=== PATIENT | male | born 1935 | race Asian ===

== ENCOUNTER 2016-12-22 07:33 | Inpatient (IN) | payer MEDICARE, OTHER ==
[2016-12-22] VITALS (8 sets, daily range): BP systolic 82–155; BP diastolic 49–96
[~2016-12-22] VITALS: Ht 167.6 cm; Wt 63.5 kg
--- NOTE | 2016-12-22 07:40 | Emergency Room Report ---
History of Present Illness General Source: Patient, EMS Present Illness HPI Patient presents with substernal chest pain. According to EMS began this morning, 2 hours ago. They treated him with aspirin and 3 sprays of nitroglycerin. It was 10/10 initially and he felt better but would not give them the number. There is some language barrier. According to daughter, several days (close to week) of dyspnea and orthopnea = intermittent. No chest pain before today. No fevers, NVD, rashes, headache, dysuria. Possibly some anxiety. Treated for Parkinson's. Medications stable. Allergies: Coded Allergies: No Known Allergies (Unverified , 12/22/16) Patient History Limited by: language barrier Past Medical History: see triage record Social History Narrative Reviewed Nursing Documentation: PMH: Agreed, PSxH: Agreed Review of Systems All Other Systems: negative except mentioned in HPI Physical Exam Vital Signs Date Time Temp Pulse Resp B/P Pulse Ox O2 Delivery O2 Flow Rate FiO2 12/22/16 07:48 122/79 12/22/16 07:58 98.8 84 29 99 Room Air Sp02 EP Interpretation: reviewed, normal General Appearance: well appearing, no apparent distress, GCS 15 Head: normocephalic Eyes: bilateral eye PERRL, bilateral eye normal inspection ENT: moist mucus membranes Neck: supple Respiratory: lungs clear, normal breath sounds Cardiovascular #1: regular rate, rhythm Cardiovascular #2: 2+ radial (R) Gastrointestinal: normal inspection, normal bowel sounds, non tender, no mass, non-distended Musculoskeletal: back normal, gait/station normal, normal range of motion Neurologic: alert, oriented x3, DTRs symmetric, sensory intact, other - resting tremor, slight depression Psychiatric: mood/affect normal - flat Skin: other - vitiligo Medical Decision Making Diagnostic Impression: Primary Impression: ACS (acute coronary syndrome) Additional Impression: Parkinsons disease ER Course Patient presents with substernal chest pain. The prehospital EKG shows minimal ST elevation in inferior leads. We are going to repeat that here. Differential includes acute myocardial infarction, angina, chest wall pain, pleurisy amongst others. Evaluation will be with labs, EKG and chest x-ray. The patient be treated with nitroglycerin paste and morphine. He received aspirin in the field. EKG with minimal ST elevation (not STEMI) inferior leads - no change from EMS EKG. CXR chronic changes. Labs with negative troponin. Anxiety at not having meds for Parkinsons in AM. Check with pharmacy to ID meds and ordered. Improved with treatment. Admitted telemetry Dr. Das. Laboratory Tests Test 12/22/16 07:50 12/22/16 08:42 White Blood Count 5.6 K/UL (4.8-10.8) Red Blood Count 4.43 M/UL (4.70-6.10) L Hemoglobin 15.0 G/DL (14.2-18.0) Hematocrit 42.9 % (42.0-52.0) Mean Corpuscular Volume 97 FL (80-99) Mean Corpuscular Hemoglobin 33.9 PG (27.0-31.0) H Mean Corpuscular Hemoglobin Concent 35.0 G/DL (32.0-36.0) Red Cell Distribution Width 11.0 % (11.6-14.8) L Platelet Count 181 K/UL (150-450) Mean Platelet Volume 6.4 FL (6.5-10.1) L Neutrophils (%) (Auto) 71.5 % (45.0-75.0) Lymphocytes (%) (Auto) 18.9 % (20.0-45.0) L Monocytes (%) (Auto) 6.4 % (1.0-10.0) Eosinophils (%) (Auto) 1.6 % (0.0-3.0) Basophils (%) (Auto) 1.5 % (0.0-2.0) Prothrombin Time 10.8 SEC (9.30-11.50) Prothrombin Time INR 1.1 (0.9-1.1) PTT 27 SEC (23-33) Sodium Level 137 mEQ/L (135-145) Potassium Level 4.4 mEQ/L (3.4-4.9) Chloride Level 100 mEQ/L (98-107) Carbon Dioxide Level 26 mEQ/L (20-30) Anion Gap 11 (5-15) Blood Urea Nitrogen 24 mg/dL (7-23) H Creatinine 1.2 mg/dL (0.7-1.2) Estimate Glomerular Filtration Rate mL/min (>60) Glucose Level 153 mg/dL (74-106) H Calcium Level 9.3 mg/dL (8.6-10.2) Total Bilirubin 0.7 mg/dL (0.0-1.2) Aspartate Amino Transferase (AST) 25 U/L (5-40) Alanine Aminotransferase (ALT) 6 U/L (3-41) Alkaline Phosphatase 82 U/L (40-129) Total Creatine Kinase 75 U/L (38-174) Troponin I < 0.30 ng/mL (<=0.30) Pro-B-Type Natriuretic Peptide 75 pg/mL (0-450) Total Protein 6.5 g/dL (6.6-8.7) L Albumin 3.8 g/dL (3.5-5.2) Globulin 2.7 g/dL Albumin/Globulin Ratio 1.4 (1.0-2.7) Triglycerides Level 90 mg/dL (< 150) Cholesterol Level 154 mg/dL (< 200) LDL Cholesterol 97 mg/dL (60-99) HDL Cholesterol 39 mg/dL (> 60) Cholesterol/HDL Ratio 3.9 (3.3-4.4) Urine Color Pale yellow Urine Appearance Clear Urine pH 6 (4.5-8.0) Urine Specific Haiku 1.020 (1.005-1.035) Urine Protein Negative (NEGATIVE) Urine Glucose (UA) Negative (NEGATIVE) Urine Ketones 1+ (NEGATIVE) H Urine Occult Blood 1+ (NEGATIVE) H Urine Nitrite Negative (NEGATIVE) Urine Bilirubin Negative (NEGATIVE) Urine Urobilinogen Normal MG/DL (0.0-1.0) Urine Leukocyte Esterase 1+ (NEGATIVE) H Urine RBC 0-2 /HPF (0 - 0) H Urine WBC 2-4 /HPF (0 - 0) Urine Squamous Epithelial Cells Occasional /LPF Urine Bacteria Few /HPF (NONE) EKG Diagnostic Results Rate: normal Rhythm: NSR ST Segments: other - minimal ST elevation inferior leads Rhythm Strip Diag. Results EP Interpretation: yes Rhythm: NSR, no PVC's, no ectopy Chest X-Ray Diagnostic Results EP Interpretation: Yes Findings: no consolidation, no effusion, no pneumothorax, no acute cardiopulmonary disease Number of Views: 1 98.4, 136/96, 24, 79, 100% RA Status: improved Disposition: ADMITTED INPATIENT Condition: Serious Alireza Grajeda M.D. December 22, 2016 07:40
[2016-12-22] MEDS ORDERED: Nitroglycerin 2% oint pkt TOPIC ONE (07:45)
[2016-12-22] MEDS ORDERED: Morphine Sulfate 4mg/ml Inj IVP ONE (07:45)
[2016-12-22 08:13] LABS: BASOPHILS % (AUTO) 1.5 % (0.0-2.0); EOSINOPHILS % (AUTO) 1.6 % (0.0-3.0); LYMPHOCYTES % (AUTO) 18.9 % (20.0-45.0); MEAN CORPUSCULAR HEMOGLOBIN 33.9 PG (27.0-31.0); MEAN CORPUSCULAR VOLUME 97 FL (80-99); MEAN PLATELET VOLUME 6.4 FL (6.5-10.1); MONOCYTES % (AUTO) 6.4 % (1.0-10.0); NEUTROPHILS % (AUTO) 71.5 % (45.0-75.0); PLATELET COUNT 181 K/UL (150-450); RED BLOOD COUNT 4.43 M/UL (4.70-6.10); WHITE BLOOD COUNT 5.6 K/UL (4.8-10.8)
[2016-12-22 08:22] LABS: INR 1.1 (0.9-1.1); PROTHROMBIN TIME 10.8 SEC (9.30-11.50)
[2016-12-22 08:27] LABS: ALANINE AMINOTRANSFERASE 6 U/L (3-41); ALBUMIN/GLOBULIN RATIO 1.4 (1.0-2.7); ANION GAP 11 (5-15); ASPARTATE AMINO TRANSFERASE 25 U/L (5-40); CALCIUM 9.3 mg/dL (8.6-10.2); CARBON DIOXIDE 26 mEQ/L (20-30); CHLORIDE 100 mEQ/L (98-107); CREATININE 1.2 mg/dL (0.7-1.2); HEMOLYSIS 52; POTASSIUM 4.4 mEQ/L (3.4-4.9); SODIUM 137 mEQ/L (135-145); TOTAL PROTEIN 6.5 g/dL (6.6-8.7)
[2016-12-22 08:30] LABS: TROPONIN I < 0.30 ng/mL (<=0.30)
[2016-12-22] MEDS ORDERED: UNOBMED (09:12)
[2016-12-22 09:13] LABS: APPEARANCE,URINE CLEAR; KETONES,URINE 1+ (NEGATIVE); LEUKOCYTE ESTERASE ,URINE 1+ (NEGATIVE); NITRITE,URINE NEGATIVE (NEGATIVE); PH,URINE 6 (4.5-8.0); PROTEIN,URINE NEGATIVE (NEGATIVE); UROBILINOGEN,URINE NORMAL MG/DL (0.0-1.0)
[2016-12-22 09:29] LABS: BACTERIA,URINE FEW /HPF; RBC,URINE 0-2 /HPF (0 - 0); SQUAMOUS EPITHELIAL CELL,UR OCCASIONAL /LPF (NONE/OCC)
[2016-12-22] MEDS ORDERED: Entacapone 200mg tab ORAL STA (09:48)
--- NOTE | 2016-12-22 11:01 | Diagnostic Imaging Report ---
Indication: Chest pain Technique: One view of the chest Comparison: none Findings: No acute infiltrates, effusions, or congestion. Tortuous calcified aorta. Normal heart size. Upper mediastinum unremarkable. Impression: No acute process. This agrees with the preliminary interpretation provided by the emergency room physician
[2016-12-22 12:42] LABS: CHOLESTEROL/HDL RATIO 3.9 (3.3-4.4)
[2016-12-22] MEDS ORDERED: COLACE100 MG ORAL (15:33)
[2016-12-22] MEDS ORDERED: BUPROPION HCL200 MG PO (15:33)
[2016-12-22] MEDS ORDERED: FUROSEMIDE20 M1 ORAL (15:33)
[2016-12-22] MEDS ORDERED: METFORMIN HCL500 M1 ORAL (15:33)
[2016-12-22] MEDS ORDERED: AMLODIPINE BESY10 MG ORAL (15:33)
[2016-12-22] MEDS ORDERED: CREON DR 24,001 EACH PO (15:33)
[2016-12-22] MEDS ORDERED: CARBIDOPA-LEVO1 EA14 PO (15:33)
[2016-12-22] MEDS ORDERED: COMTAN200 MG ORAL (15:33)
[2016-12-22] MEDS ORDERED: ISOSORBIDE MONO30 M1 PO (15:33)
[2016-12-22] MEDS ORDERED: GABAPENTIN100 MG ORAL (15:33)
[2016-12-22] MEDS ORDERED: Imdur 30mg tab ORAL SCH (16:00)
[2016-12-22] MEDS: Imdur 30mg tab ORAL SCH (16:18)
[2016-12-22] MEDS: Docusate 100mg cap ORAL SCH (16:18)
[2016-12-22] MEDS: metFORMIN 500mg tab ORAL SCH (17:31)
[2016-12-22] MEDS: Entacapone 200mg tab ORAL SCH ×2 (17:32→21:48)
--- NOTE | 2016-12-22 21:15 | History and Physical Report ---
DATE OF ADMISSION: 12/22/2016 HISTORY OF PRESENT ILLNESS: The patient is admitted for chest pain and rule out acute coronary syndrome. The patient's chest pain started a couple of hours ago. Aspirin was given as well as three doses of nitroglycerin. The patient denies nausea, vomiting, or diarrhea. Denies palpitations. Denies shortness of breath. Denies cough. Denies loss of consciousness. PAST MEDICAL HISTORY: 1. Parkinson's. 2. GERD. PAST SURGICAL HISTORY: None. MEDICATIONS: None. ALLERGIES: None. FAMILY HISTORY: Noncontributory. No history of heart disease. SOCIAL HISTORY: Denies history of smoking, alcohol, or illicit drugs. REVIEW OF SYSTEMS: HEENT: Denies headaches. Respiratory: Denies shortness of breath. Denies cough. Cardiovascular: Reports chest pain for a couple of hours that is still not completely relieved after nitroglycerin and aspirin were given. Denies orthopnea. Gastrointestinal: Denies nausea, vomiting, or diarrhea. Denies heartburn. Extremities: Denies pain. Central Nervous System: No change in vision or speech pattern. PHYSICAL EXAMINATION: VITAL SIGNS: Temperature is 98.7 degrees, pulse 83, and blood pressure 125/78. HEENT: PERRLA. NECK: Supple. No lymphadenopathy. CHEST: Clear to auscultation. GASTROINTESTINAL: Soft, nontender, and nondistended. No organomegaly. EXTREMITIES: No edema. Reflexes are equal on both sides. Moves all four extremities. NEUROLOGIC: Sensory is intact to light touch. LABORATORY DATA: Laboratory-sherman, WBC of 5.6, hemoglobin of 15, and platelets of 181,000. Sodium 137, potassium 4.4, BUN of 24, creatinine 1.2, and glucose of 153. ASSESSMENT AND PLAN: Chest pain, rule out acute coronary syndrome. I have started the patient on aspirin ordered and Dr. Henderson has been consulted to rule out acute coronary syndrome. Also for azotemia, Dr. Porter has been consulted for the azotemia and the treatment of it. We will defer the workup of chest pain to Dr. Henderson. Shireen Das M.D. DR: SAUL JOB#: [id number] CC:
[2016-12-22] MEDS ORDERED: LORazepam 1mg tab ORAL PRN (22:30)
[2016-12-23 04:19] VITALS: BP 95/63
[2016-12-23 07:17] VITALS: BP 101/66
[2016-12-23 07:40] LABS: TROPONIN I < 0.30 ng/mL (<=0.30)
[2016-12-23] MEDS: Entacapone 200mg tab ORAL SCH ×4 (08:37→21:00)
[2016-12-23] MEDS: Aspirin EC 81mg tab ORAL SCH (08:39)
[2016-12-23] MEDS: Docusate 100mg cap ORAL SCH (08:39)
[2016-12-23] MEDS: Imdur 30mg tab ORAL SCH (08:40)
[2016-12-23] MEDS: BuPROPion SR 100mg tab ORAL SCH (08:40)
[2016-12-23] MEDS: metFORMIN 500mg tab ORAL SCH ×2 (08:41→16:56)
--- NOTE | 2016-12-23 11:05 | General Progress Note ---
Assessment/Plan Problem List: (1) Parkinsons disease ICD Codes: G20 - Parkinson's disease SNOMED: 95684329 (2) Chest pain ICD Codes: R07.9 - Chest pain, unspecified SNOMED: 15066473 (3) ACS (acute coronary syndrome) ICD Codes: I24.9 - Acute ischemic heart disease, unspecified SNOMED: 578076471 Status: progressing Assessment/Plan chest pain confused and agitated consulted dr garnica and has 1:1 sitter agrees to snf for time being Subjective ROS Limited/Unobtainable: Yes Constitutional: Reports: no symptoms Allergies: Coded Allergies: No Known Allergies (Unverified , 12/22/16) Objective Last 24 Hour Vital Signs Date Time Temp Pulse Resp B/P Pulse Ox O2 Delivery O2 Flow Rate FiO2 12/23/16 08:41 79 135/77 12/23/16 08:40 135/77 12/23/16 07:17 97.0 70 20 101/66 100 Room Air 12/23/16 04:19 97.1 72 19 95/63 94 Room Air 12/23/16 04:00 72 12/23/16 00:00 80 12/22/16 23:46 97.7 78 19 82/49 98 Room Air 12/22/16 20:04 97.2 70 20 123/75 97 Room Air 12/22/16 20:00 140 12/22/16 16:19 76 143/89 12/22/16 16:18 143/89 12/22/16 16:00 73 12/22/16 15:47 97.7 76 18 143/89 99 Room Air 12/22/16 12:42 97.3 77 18 136/78 98 Room Air 12/22/16 12:30 98.4 79 24 136/96 100 Room Air 12/22/16 12:15 98.4 79 24 136/96 100 Room Air Intake and Output 12/22/16 12/23/16 19:00 07:00 Intake Total 120 ml Output Total 900 ml 1600 ml Balance -780 ml -1600 ml Intake Oral 120 ml Output Urine Total 900 ml 1600 ml Laboratory Tests 12/23/16 06:20: Troponin I < 0.30 Height (Feet): 5 Height (Inches): 6.00 Weight (Pounds): 140 General Appearance: confused Respiratory/Chest: lungs clear Abdomen: soft Hadadz,Ali MD December 23, 2016 11:05
[2016-12-23 12:50] VITALS: BP 114/65
[2016-12-23 16:02] VITALS: BP 123/84
--- NOTE | 2016-12-23 18:00 | Consultation ---
DATE OF CONSULTATION: 12/23/2016 CONSULTING PHYSICIAN: Sary Pardo M.D. HISTORY OF PRESENT ILLNESS: This is a 81-year-old male with a history of multiple medical problems, includes Parkinson disease and GERD who has been admitted to the hospital due to chest pain, to rule out myocardial infarction or coronary artery disease. The patient apparently became severely agitated the night before and requested to get Ativan. The family was at bedside and requested to give 2 mg of Ativan. The patient was prescribed. The patient has difficulty with language as his [place] is poor, and therefore, there is language barrier to provide history. The patient does not endorse any current anxiety or agitation. No psychotic or manic symptoms. It appears that the patient gets more anxious towards the night time. PAST PSYCHIATRIC HISTORY: As I mentioned, he was diagnosed with anxiety disorder and he is receiving lorazepam prior to sleep. PAST MEDICAL HISTORY: Significant for GERD and Parkinson disease. ALLERGIES: No known drug allergies. SUBSTANCE ABUSE HISTORY: There is no history of illicit drug use or alcohol. MENTAL STATUS EXAMINATION: The patient is alert and oriented times place, person, and situation he is in. Mood is depressed. Affect is constricted, congruent with mood. Thought process is concrete. Thought content, there is no suicidal or homicidal ideation. ASSESSMENT: AXIS I: 1. Anxiety disorder. 2. Major depressive disorder, mild. AXIS II: Deferred. AXIS III: Parkinson disease. AXIS IV: Low. AXIS V: Global assessment of functioning is 50. PLAN: 1. The patient will be continued on Ativan 2 mg by mouth at bedtime as needed for insomnia. 2. We will continue to follow and readjust the patient's medication accordingly. Sary Pardo M.D. DR: FÉLIX JOB#: [id number] CC:
--- NOTE | 2016-12-23 18:00 | Neurology Progress Note ---
Interim History Interim History ROS Limited/Unobtainable: Yes Objective Physical Exam Last Vital Signs Date Time Temp Pulse Resp B/P Pulse Ox O2 Delivery O2 Flow Rate FiO2 12/23/16 16:02 97.3 98 18 123/84 97 Room Air Laboratory Tests Test 12/23/16 06:20 Troponin I < 0.30 ng/mL (<=0.30) Impression/Recommendations Problems: (1) parkinson disease with drug induced dyskinesia, advanced (2) ACS (acute coronary syndrome) Status: progressing, unchanged Recommendations #[id number] good candidate for DEEP BRAIN STIMULATION per [facility] LIBRA Mcclure December 23, 2016 18:00
--- NOTE | 2016-12-23 19:31 | Cardiology Progress Note ---
Assessment/Plan Assessment/Plan The patient is seen and examined, full consult note will be dictated shortly. Objective Last 24 Hour Vital Signs Date Time Temp Pulse Resp B/P Pulse Ox O2 Delivery O2 Flow Rate FiO2 12/23/16 16:02 97.3 98 18 123/84 97 Room Air 12/23/16 16:00 98 12/23/16 12:50 96.9 84 20 114/65 96 Room Air 12/23/16 12:00 81 12/23/16 08:41 79 135/77 12/23/16 08:40 135/77 12/23/16 08:00 80 12/23/16 07:17 97.0 70 20 101/66 100 Room Air 12/23/16 04:19 97.1 72 19 95/63 94 Room Air 12/23/16 04:00 72 12/23/16 00:00 80 12/22/16 23:46 97.7 78 19 82/49 98 Room Air 12/22/16 20:04 97.2 70 20 123/75 97 Room Air 12/22/16 20:00 140 Intake and Output 12/22/16 12/23/16 19:00 07:00 Intake Total 120 ml Output Total 900 ml 1600 ml Balance -780 ml -1600 ml Intake Oral 120 ml Output Urine Total 900 ml 1600 ml Laboratory Tests Test 12/23/16 06:20 Troponin I < 0.30 ng/mL (<=0.30) AICHA CONTEH December 23, 2016 19:31
[2016-12-23 20:00] VITALS: BP 108/84
[2016-12-23] MEDS: LORazepam 1mg tab ORAL PRN (20:10)
[2016-12-23] MEDS ORDERED: LORazepam Inj 2mg/ml 1ml ONE (20:16)
[2016-12-23] MEDS ORDERED: LORazepam Inj 2mg/ml 1ml IM ONE (20:30)
[2016-12-24] VITALS (7 sets, daily range): BP systolic 103–153; BP diastolic 70–85
--- NOTE | 2016-12-24 04:00 | Consultation ---
DATE OF CONSULTATION: 12/23/2016 NEUROLOGICAL CONSULTATION CONSULTING PHYSICIAN: Satish Friend M.D. REQUESTING PHYSICIAN: Shireen Das M.D. HISTORY OF PRESENT ILLNESS: The patient is a 81-year-old man seen in neurological consultation to evaluate the presence of Parkinson disease. According to the patient, who spoke through a [place] admissions officer know that he is suffering from Parkinson disease for at least 6 years. This progressively worsened making very unsteady on gait, presenting from ambulation unless fully assisted. He was maintained on high doses of Sinemet, couple of months ago Sinemet was t.i.d. and now it is q.i.d. The patient noted that through the day, he has intermittent appearance of generalized body twitching lasting couple of hours each. Currently, the patient was treated for presence of substernal chest pain, shortness of breath. He was brought to emergency room where he was given aspirin and nitroglycerin. Chest pain was quite severe 10/10 with some gradually subsided. His vital signs study with blood pressure was 122/79, temperature 98.8 degrees and pulse oximetry 99%. Chest x-ray, no acute disease. EKG evidence of minimal ST elevation. Laboratory work was obtained revealing a remarkable CBC study. Normal coagulation panel. Urinalysis 1+ ketones, and chemistry panel blood sugar 153 and BUN of 24. Normal lipid panel. Normal troponin. Since admission till present, overall condition is somewhat improved, less pain, but at this time he continued to have quite significant generalized athetosis. PAST MEDICAL HISTORY: History of Parkinson disease, but also history of mild diabetes, and hypertension. MEDICATIONS: Treatment prior to admission included metformin, Creon, isosorbide, gabapentin 100 mg t.i.d., furosemide, entacapone 500 mg q.i.d., Sinemet 25/250 mg q.i.d., Wellbutrin 200 mg daily, and amlodipine. ALLERGIES: None reported. SOCIAL HISTORY: He lives at home with the family members. No alcohol. No drug abuse. Nonsmoker. REVIEW OF SYSTEMS: Generalized weakness, involuntary movement, and difficult to ambulate. Denies headache or dizziness. No chest pain. No palpitations. No respiratory difficulties. No urine or bowel incontinence. PHYSICAL EXAMINATION: GENERAL: This is a well-developed and well-nourished man, who is constantly continues to have athetosis affecting from both upper and lower extremities and body twisting. VITAL SIGNS: Now stable. Blood pressure was 121/84 and temperature 97.3 degrees. HEENT: Head, normocephalic. There is no evidence of trauma. Eyes, ears, and throat are clear. NECK: Rigid in all directions. MUSCULOSKELETAL EXAMINATION: Unremarkable. There are no deformities. Peripheral pulses 1+ symmetric. MENTAL STATUS: The patient is alert and oriented x3. Speech is fluent. Language is intact. He appears somewhat inappropriate like trying to pull out IVs. CRANIAL NERVE II: Pupils both responding to light and accommodation. Extraocular movements intact. No nystagmus. CRANIAL NERVE V: Normal corneal responses. CRANIAL NERVE VII: No facial asymmetry. No involuntary movement. CRANIAL NERVE IX THROUGH XII: Tongue is in midline. Symmetric palate elevation. MOTOR EXAMINATION: There is a continuous athetosis in both upper and lower extremities, increased muscle tone rigidity both upper and lower extremities. Deep reflexes 2+ bilaterally symmetric. Plantar response is mute. Sensory examination normal in all modalities. Gait not tested. IMPRESSION: 1. Parkinson disease with drug-induced dyskinesia, advanced. 2. Diabetes type 2. 3. Hypertension. 4. Chest pain. DISCUSSION: The patient presents with a quite advanced form of Parkinson disease with intermittent daily dyskinesia. The patient is now given high dose of Sinemet combined with Comtan with no appropriate affect. It seems that the patient is a good candidate for a deep brain stimulation. This should be deferred to Parkinsonian clinic as an outpatient. Meanwhile, Sinemet to be given half an hour prior to each meal q.i.d. combined with Comtan. Thank you for allowing me to see this interesting patient in neurological consultation. Satish Friend M.D. DR: CHAU JOB#: [id number] CC:
[2016-12-24] MEDS: Aspirin EC 81mg tab ORAL SCH (08:49)
[2016-12-24] MEDS: BuPROPion SR 100mg tab ORAL SCH (08:49)
[2016-12-24] MEDS: metFORMIN 500mg tab ORAL SCH ×2 (08:49→18:21)
[2016-12-24] MEDS: Docusate 100mg cap ORAL SCH (08:49)
[2016-12-24] MEDS: Entacapone 200mg tab ORAL SCH ×4 (08:50→20:51)
[2016-12-24] MEDS: Imdur 30mg tab ORAL SCH ×2 (08:50→09:00)
--- NOTE | 2016-12-24 10:08 | Cardiology Report ---
APPROVED REPORT EKG Measurement Heart [id number] Sinus rhythm with 1st degree AV block Low voltage QRS Inferior infarct, age undetermined Anterolateral infarct, age undetermined Abnormal ECG
--- NOTE | 2016-12-24 10:50 | General Progress Note ---
Assessment/Plan Problem List: (1) Parkinsons disease ICD Codes: G20 - Parkinson's disease SNOMED: [id number] (2) Chest pain ICD Codes: R07.9 - Chest pain, unspecified SNOMED: 80972962 (3) ACS (acute coronary syndrome) ICD Codes: I24.9 - Acute ischemic heart disease, unspecified SNOMED: 180694092 Status: progressing Assessment/Plan chest pain confused and agitated ordered pt\ot parkinson afebrile no wheezing Subjective ROS Limited/Unobtainable: Yes Allergies: Coded Allergies: No Known Allergies (Unverified , 12/22/16) Objective Last 24 Hour Vital Signs Date Time Temp Pulse Resp B/P Pulse Ox O2 Delivery O2 Flow Rate FiO2 12/24/16 08:51 80 103/77 12/24/16 08:50 103/77 12/24/16 08:00 112 12/24/16 07:53 96.4 80 17 103/77 97 Room Air 12/24/16 04:00 72 12/24/16 04:00 97.3 77 20 107/77 97 Room Air 12/24/16 00:00 97.3 85 20 105/84 97 Room Air 12/24/16 00:00 80 12/23/16 20:00 97.3 87 20 108/84 97 Room Air 12/23/16 20:00 87 12/23/16 16:02 97.3 98 18 123/84 97 Room Air 12/23/16 16:00 98 12/23/16 12:50 96.9 84 20 114/65 96 Room Air 12/23/16 12:00 81 Intake and Output 12/23/16 12/24/16 19:00 07:00 Intake Total 360 ml Output Total 400 ml 300 ml Balance -40 ml -300 ml Intake Oral 360 ml Output Urine Total 400 ml 300 ml # Voids 1 Height (Feet): 5 Height (Inches): 6.00 Weight (Pounds): 140 General Appearance: confused Respiratory/Chest: lungs clear Abdomen: soft Shireen Das MD Dec 24, 2016 10:49
--- NOTE | 2016-12-24 14:41 | Neurology Progress Note ---
Interim History Interim History ROS Limited/Unobtainable: Yes Complaints: involuntary movements Events: sl better Objective Physical Exam Last Vital Signs Date Time Temp Pulse Resp B/P Pulse Ox O2 Delivery O2 Flow Rate FiO2 12/24/16 12:00 90 12/24/16 11:55 96.9 18 143/80 98 Room Air General: well developed, well nourished, no acute distress Head: normocophalic Neck: other - rigid EENT: benign Neurologic Exam Mental Status: awake, alert, oriented x4, normal cognition, normal recent memory Speech: normal speech, no dysarthia Language: normal language, no aphasia Cranial Nerve II: fundus normal, visual malcolm, no papilledema Cranial Nerves III, IV, : PERRLA, EOMI, pupils Cranial Nerve V: normal facial sensations, temporales function normal, masseters function normal, pterygoids function normal Cranial Nerve VII: no facial asymmetry, normal facial expressions Cranial Nerve VIII: normal hearing, no nystagmus Cranial Nerve IX: normal palate elevation, gag response Cranial Nerve X: no voice hoarseness Cranial Nerve XI: SCM symmetric, trapezii function normal Cranial Nerve XII: tongue midline, no tongue atrophy/fasciculations Motor System: other - atetosis arm/legs, Sensory: normal pinprick Coordination: normal finger to nose bilaterally Impression/Recommendations Problems: (1) parkinson disease with drug induced dyskinesia, advanced (2) ACS (acute coronary syndrome) Status: progressing Recommendations #[id number] good candidate for DEEP BRAIN STIMULATION per [facility] clinik sinemet to be taken prior to meals d/w and med staff LIBRA PARTIDA Dec 24, 2016 14:41
--- NOTE | 2016-12-24 16:51 | Diagnostic Imaging Report ---
Indications: Chest pain and hypertension Technique: Single day single isotope protocol utilized. Initially, resting images obtained using IV administration 3.0 millicuries 99M technetium Myoview. Subsequently, patient underwent stress testing. See cardiology report for details. During adenosine infusion, IV administration mCi 99 M technetium Myoview. SPECT and planar images obtained. Gated images could not be obtained due to arrhythmias and motion artifacts related are concerning in movement. Therefore, the ejection fraction calculation and wall motion analysis could not be obtained. Comparison: None Findings: Per cardiology report, patient experienced no symptoms. Per cardiology report, resting EKG demonstrates atrial fibrillation. Presence or absence of ST changes during infusion not recorded. Imaging demonstrates equivocal small focal area of decreased perfusion in the anteroseptal region near the apex on the poststress images, not definitely evident on the resting images. Normal cardiac chamber size. Impression: Nondiagnostic clinical response to pharmacologic stress, per cardiology report Nondiagnostic electrocardiographic response to pharmacologic stress, per cardiology report Equivocal small reversible perfusion defect in the anteroseptal wall near the apex. Quite possibly artifactual, but small focus of ischemia is also a possibility. Unobtainable ejection fraction that see above
--- NOTE | 2016-12-24 20:23 | Cardiology Progress Note ---
Assessment/Plan Assessment/Plan 1. Atypical chest pain, non-ischemic stress test per nuclear stress test, the patient can be transferred to the med-surg unit. 2. Accelerated HTN, start propranolol 10mg po qid, would help tremors as well. Subjective Subjective Sinus rhythm at 80. Denies chest pain or SOB. Objective Last 24 Hour Vital Signs Date Time Temp Pulse Resp B/P Pulse Ox O2 Delivery O2 Flow Rate FiO2 12/24/16 19:48 98.8 79 20 153/70 94 Room Air 12/24/16 16:12 97.3 89 17 144/85 100 Room Air 12/24/16 16:00 101 12/24/16 12:00 90 12/24/16 11:55 96.9 88 18 143/80 98 Room Air 12/24/16 11:33 88 155/87 12/24/16 09:00 103/77 12/24/16 08:00 112 12/24/16 07:53 96.4 80 17 103/77 97 Room Air 12/24/16 04:00 72 12/24/16 04:00 97.3 77 20 107/77 97 Room Air 12/24/16 00:00 97.3 85 20 105/84 97 Room Air 12/24/16 00:00 80 Intake and Output 12/23/16 12/24/16 19:00 07:00 Intake Total 360 ml Output Total 400 ml 300 ml Balance -40 ml -300 ml Intake Oral 360 ml Output Urine Total 400 ml 300 ml # Voids 1 Objective HEENT: normocephalic, bilateral eye PERRL, EOMI Neck: negative JVD, no carotid bruit with normal upstroke Respiratory: lungs clear Cardiovascular #1: regular rate, rhythm, normal S1S2, no murmurs, gallops or rubs Gastrointestinal: normal bowel sounds, non tender, no mass, non-distended Musculoskeletal: No edema, clubbing or cyanosis AICHA CONTEH Dec 24, 2016 20:23
--- NOTE | 2016-12-24 21:30 | Progress Note ---
SUBJECTIVE: The patient was uncooperative became agitated. He was attempting to come out of bed, pulling out his IV. The patient was uncooperative. MENTAL STATUS EXAMINATION: The patient is confused and disoriented. Not engaged during the evaluation. Mood is neutral during the evaluation. Affect is flat. Thought process is concrete. Memory is impaired. ASSESSMENT: AXIS I Dementia and delirium. AXIS II Deferred. AXIS III Acute coronary syndrome and Parkinson disease. PLAN: 1. The patient will be continued Ativan. Also, we will start the patient on Seroquel p.r.n. 2. We will continue to follow and monitor his symptoms. Sary Pardo M.D. DR: Melanie JOB#: [id number] CC:
[2016-12-24] MEDS: LORazepam 1mg tab ORAL PRN (21:37)
--- NOTE | 2016-12-24 22:30 | Consultation ---
DATE OF CONSULTATION: 12/23/2016 CARDIOLOGY CONSULTATION REFERRING PHYSICIAN: Shireen Das M.D. REASON FOR CONSULTATION: Management of chest pain. HISTORY OF PRESENT ILLNESS: The patient is a very unfortunate 81-year-old gentleman, who presents to the hospital with substernal chest pain. According to EMS, chest pain started two hours prior to arrival to this facility, which was on 12/22/2016. He was given aspirin and three sprays of nitroglycerin. Chest pain intensity was 10/10 initially and then it got better. The patient's daughter states that the patient had been complaining of dyspnea and orthopnea intermittently for the past several days. On arrival to the emergency department, blood pressure was 122/79 and heart rate was 84. The patient was admitted to telemetry for further evaluation and management. Cardiology consultation was made at request of Dr. Das for evaluation of chest pain. At the time of my evaluation, the patient was moving all around in bed, could not communicate with the patient because of language barrier as well as his movement disorder. PAST MEDICAL HISTORY: Parkinson disease, diabetes mellitus, and hypertension. MEDICATIONS: List of medication includes amlodipine 10 mg p.o. daily, bupropion 200 mg p.o. daily, carbidopa levodopa one tablet p.o. four times a day, Colace 100 mg p.o. daily, Comtan 200 mg four times a day, furosemide 200 mg p.o. daily, gabapentin 100 mg p.o. times daily, isosorbide 30 mg p.o. daily, Creon 25,000 units per capsule one capsule three times a day and metformin 500 mg twice a day. ALLERGIES: No known drug allergies. SOCIAL HISTORY: Lives at home with family members. There is no prior history of alcohol tobacco or illicit drug use. REVIEW OF SYSTEMS: HEENT: Denies any headache, diplopia, or blurred vision. Constitutional: Complains of generalized weakness, but no fever, chills, or night sweats. Cardiovascular: Chest pain, as mentioned above and has also some dyspnea on exertion according to the patient's daughter and also PND and orthopnea, but denies any syncope or palpitation. Pulmonary: Denies any cough, hemoptysis or wheezing. Gastrointestinal: Denies any nausea, vomiting, diarrhea, constipation, abdominal pain, or GI bleed. Genitourinary: Denies any hematuria, dysuria, or incontinence. Neurology: He has just involuntary movements, gait imbalance, and difficulty with ambulation. No prior history of stroke, signs of lateralization or inability to express himself in his levelock language. PHYSICAL EXAMINATION: GENERAL: The patient is a very unfortunate 81-year-old gentleman, who is possibly moving around, in no apparent respiratory distress. VITAL SIGNS: On arrival to the hospital, blood pressure is 132/79, respirations of 29, pulse of 84, temperature 98.8 degrees Fahrenheit, and O2 saturation of 99% on room air. HEENT: Atraumatic and normocephalic. Anicteric. Pupils are equal, round, and reactive to light and accommodation. Extraocular muscles intact. NECK: JVP is less than 5 centimeter. No carotid bruit. Carotid upstroke is 2+ bilaterally. CARDIOVASCULAR: Normal S1 and S2. Regular rate and rhythm. No murmurs, gallops, or rubs. PMI is at fourth intercostal space in the midclavicular line. LUNGS: Clear to auscultation bilaterally. ABDOMEN: Soft, nontender, and nondistended. No hepatosplenomegaly. Positive bowel sounds. EXTREMITIES: There is no evidence of edema, clubbing, or cyanosis. LABORATORY AND DIAGNOSTIC DATA: WBC was 5.6, hemoglobin of 15.0, hematocrit of 42.9 and platelet count is 181,000. Sodium was 137, potassium 4.4, chloride 100, bicarbonate 26, BUN of 24, creatinine 1.2 and glucose is 153. Calcium is 9.3. A troponin I x1 negative, less than 0.3. ProBNP was 75. INR is 1.1. A 12-lead electrocardiogram showed sinus rhythm with first-degree AV block and heart rate of 80, inferior infarct, age indeterminate and anterolateral infarct, age indeterminate. A chest x-ray showed no acute cardiopulmonary disease. ASSESSMENT AND PLAN: The patient is a very unfortunate 81-year-old gentleman, who is seen in Cardiology consultation at request of Dr. Das. 1. Chest pain, this is quite atypical, but the patient has risk factors for coronary artery disease including hypertension and age. I would like to proceed with the dobutamine stress echocardiography to assess wall motion abnormalities. Further therapeutic and diagnostic decision will be based on results of the stress test. In the meantime, we will like to obtain a lipid panel and treat accordingly. 2. History of hypertension. Continue with the amlodipine at this point, blood pressure is currently in stage 1. Currently, the patient on amlodipine. Blood pressure is well controlled. We will continue to check blood pressure on regular basis. 3. History of Parkinson disease. I would like to thank, Dr. Das, for allowing me to participate in the care of this patient. Petr Henderson M.D. DR: LALO JOB#: [id number] CC:
[2016-12-25] VITALS (7 sets, daily range): BP systolic 103–130; BP diastolic 61–84
[2016-12-25] MEDS ORDERED: Milk of Magnesia 30ml Ud ORAL ONE (09:00)
[2016-12-25] MEDS: Imdur 30mg tab ORAL SCH ×2 (09:00→09:28)
[2016-12-25] MEDS ORDERED: Bisacodyl EC 5mg tab ORAL ONE (09:00)
[2016-12-25] MEDS: Docusate 100mg cap ORAL SCH (09:24)
[2016-12-25] MEDS: metFORMIN 500mg tab ORAL SCH ×2 (09:24→18:58)
[2016-12-25] MEDS: Aspirin EC 81mg tab ORAL SCH (09:24)
[2016-12-25] MEDS: BuPROPion SR 100mg tab ORAL SCH (09:25)
[2016-12-25] MEDS: Entacapone 200mg tab ORAL SCH ×4 (10:17→21:31)
--- NOTE | 2016-12-25 12:43 | General Progress Note ---
Assessment/Plan Problem List: (1) Parkinsons disease ICD Codes: G20 - Parkinson's disease SNOMED: 01087350 (2) Chest pain ICD Codes: R07.9 - Chest pain, unspecified SNOMED: 60422870 (3) ACS (acute coronary syndrome) ICD Codes: I24.9 - Acute ischemic heart disease, unspecified SNOMED: 064159209 Status: progressing Assessment/Plan no chest pain cleared by cardiology for dc dc to snf needs monitering agrees Subjective ROS Limited/Unobtainable: Yes Constitutional: Reports: no symptoms Allergies: Coded Allergies: No Known Allergies (Unverified , 12/22/16) Objective Last 24 Hour Vital Signs Date Time Temp Pulse Resp B/P Pulse Ox O2 Delivery O2 Flow Rate FiO2 12/25/16 09:00 103/63 12/25/16 09:00 81 103/63 12/25/16 07:19 97.1 81 19 103/63 97 Room Air 12/25/16 05:07 75 113/61 99 Room Air 12/25/16 04:04 98.1 86 20 128/84 96 Room Air 12/24/16 23:52 98.4 89 19 135/78 94 Room Air 12/24/16 20:00 87 12/24/16 19:48 98.8 79 20 153/70 94 Room Air 12/24/16 16:12 97.3 89 17 144/85 100 Room Air 12/24/16 16:00 101 Intake and Output 12/24/16 12/25/16 19:00 07:00 Intake Total 460 ml Output Total 810 ml 300 ml Balance -350 ml -300 ml Intake Oral 460 ml Output Urine Total 810 ml 300 ml # Voids 6 1 Height (Feet): 5 Height (Inches): 6.00 Weight (Pounds): 140 EENT: PERRL/EOMI Neck: supple Cardiovascular: regular rhythm Respiratory/Chest: lungs clear Abdomen: soft Shireen Das MD Dec 25, 2016 12:43
--- NOTE | 2016-12-25 15:40 | Diagnostic Imaging Report ---
APPROVED REPORT CPT Code: 98717 Present Symptoms Shortness of breath Comments: Chest pain BILATERAL: Imaging reveals a patent deep venous system bilaterally. There is no evidence of thrombus within the femoral, popliteal or tibial segments. The greater saphenous veins are also within normal limits. Doppler indicates normal spontaneous flow within these segments.
--- NOTE | 2016-12-25 20:48 | Cardiology Progress Note ---
Assessment/Plan Assessment/Plan 1. Atypical chest pain, non-ischemic stress test per nuclear stress test. 2. Accelerated HTN, continue propranolol Subjective Subjective Transferred to the med-surg unit. Denies chest pain or SOB. Objective Last 24 Hour Vital Signs Date Time Temp Pulse Resp B/P Pulse Ox O2 Delivery O2 Flow Rate FiO2 12/25/16 19:58 97.7 79 20 122/84 98 Room Air 12/25/16 15:50 97.6 18 130/84 98 Room Air 12/25/16 13:39 97.9 17 105/73 99 Room Air 12/25/16 12:00 97.9 87 17 105/73 99 Room Air 12/25/16 09:00 103/63 12/25/16 09:00 81 103/63 12/25/16 07:19 97.1 81 19 103/63 97 Room Air 12/25/16 05:07 75 113/61 99 Room Air 12/25/16 04:04 98.1 86 20 128/84 96 Room Air 12/24/16 23:52 98.4 89 19 135/78 94 Room Air Intake and Output 12/24/16 12/25/16 19:00 07:00 Intake Total 460 ml Output Total 810 ml 300 ml Balance -350 ml -300 ml Intake Oral 460 ml Output Urine Total 810 ml 300 ml # Voids 6 1 Objective HEENT: normocephalic, bilateral eye PERRL, EOMI Neck: negative JVD, no carotid bruit with normal upstroke Respiratory: lungs clear Cardiovascular #1: regular rate, rhythm, normal S1S2, no murmurs, gallops or rubs Gastrointestinal: normal bowel sounds, non tender, no mass, non-distended Musculoskeletal: No edema, clubbing or cyanosis AICHA CONTEH Dec 25, 2016 20:48
[2016-12-25] MEDS: LORazepam 1mg tab ORAL PRN (21:31)
[2016-12-26] VITALS: BP 138/50
[2016-12-26 04:00] VITALS: BP 134/60
[2016-12-26 08:00] VITALS: BP 113/71
[2016-12-26] MEDS: Imdur 30mg tab ORAL SCH (09:00)
[2016-12-26] MEDS: Aspirin EC 81mg tab ORAL SCH (09:57)
[2016-12-26] MEDS: BuPROPion SR 100mg tab ORAL SCH (09:57)
[2016-12-26] MEDS: Entacapone 200mg tab ORAL SCH ×4 (09:57→20:28)
[2016-12-26] MEDS: Docusate 100mg cap ORAL SCH (09:58)
[2016-12-26] MEDS: metFORMIN 500mg tab ORAL SCH ×2 (09:58→18:05)
--- NOTE | 2016-12-26 10:29 | General Progress Note ---
Assessment/Plan Problem List: (1) Chest pain ICD Codes: R07.9 - Chest pain, unspecified SNOMED: 33317380 (2) Parkinsons disease ICD Codes: G20 - Parkinson's disease SNOMED: 36171123 (3) ACS (acute coronary syndrome) ICD Codes: I24.9 - Acute ischemic heart disease, unspecified SNOMED: 807085143 (4) parkinson disease with drug induced dyskinesia, advanced Status: stable, progressing, tolerating diet Assessment/Plan ot pt diet, cbc bmp am Subjective Allergies: Coded Allergies: No Known Allergies (Unverified , 12/22/16) All Systems: reviewed and negative except above Subjective calm in bed Objective Last 24 Hour Vital Signs Date Time Temp Pulse Resp B/P Pulse Ox O2 Delivery O2 Flow Rate FiO2 12/26/16 09:00 113/71 12/26/16 09:00 72 113/71 12/26/16 08:00 97.3 72 20 113/71 98 Room Air 12/26/16 04:00 97.1 78 20 134/60 97 Room Air 12/26/16 00:00 96.9 77 18 138/50 95 Room Air 12/25/16 19:58 97.7 79 20 122/84 98 Room Air 12/25/16 15:50 97.6 18 130/84 98 Room Air 12/25/16 13:39 97.9 17 105/73 99 Room Air 12/25/16 12:00 97.9 87 17 105/73 99 Room Air Intake and Output 12/25/16 12/26/16 19:00 07:00 Intake Total 480 ml Balance 480 ml Intake Oral 480 ml # Voids 3 # Bowel Movements 1 Height (Feet): 5 Height (Inches): 6.00 Weight (Pounds): 140 General Appearance: lethargic EENT: normal ENT inspection Neck: normal alignment Cardiovascular: normal peripheral pulses, normal rate, regular rhythm Respiratory/Chest: chest wall non-tender, lungs clear, normal breath sounds Abdomen: normal bowel sounds, non tender, soft Extremities: normal inspection Edema: no edema noted Arm (L), no edema noted Arm (R), no edema noted Leg (L), no edema noted Leg (R), no edema noted Pedal (L), no edema noted Pedal (R), no edema noted Generalized Neurologic: responsive, motor weakness Skin: normal pigmentation, warm/dry ELLY RICE Dec 26, 2016 10:29
[2016-12-26 12:00] VITALS: BP 144/85
[2016-12-26 16:00] VITALS: BP 121/75
[2016-12-26] MEDS: LORazepam 1mg tab ORAL PRN (20:28)
[2016-12-26] MEDS ORDERED: LORazepam Inj 2mg/ml 1ml IM ONE ×2 (22:30)
[2016-12-27] VITALS: BP 125/63
[2016-12-27 04:00] VITALS: BP 115/60
[2016-12-27 07:27] LABS: BASOPHILS % (AUTO) 1.3 % (0.0-2.0); EOSINOPHILS % (AUTO) 3.1 % (0.0-3.0); LYMPHOCYTES % (AUTO) 24.3 % (20.0-45.0); MEAN CORPUSCULAR HEMOGLOBIN 34.2 PG (27.0-31.0); MEAN CORPUSCULAR HGB CONC 35.5 G/DL (32.0-36.0); MEAN CORPUSCULAR VOLUME 96 FL (80-99); MEAN PLATELET VOLUME 7.1 FL (6.5-10.1); MONOCYTES % (AUTO) 9.7 % (1.0-10.0); NEUTROPHILS % (AUTO) 61.6 % (45.0-75.0); PLATELET COUNT 174 K/UL (150-450); RED BLOOD COUNT 4.86 M/UL (4.70-6.10); RED CELL DISTRIBUTION WIDTH 10.7 % (11.6-14.8); WHITE BLOOD COUNT 6.4 K/UL (4.8-10.8)
[2016-12-27 08:00] VITALS: BP 124/86
[2016-12-27 08:07] LABS: ANION GAP 16 (5-15); CALCIUM 9.4 mg/dL (8.6-10.2); CARBON DIOXIDE 25 mEQ/L (20-30); CHLORIDE 96 mEQ/L (98-107); HEMOLYSIS 10; POTASSIUM 3.5 mEQ/L (3.4-4.9); SODIUM 137 mEQ/L (135-145)
--- NOTE | 2016-12-27 08:26 | General Progress Note ---
Assessment/Plan Problem List: (1) Chest pain ICD Codes: R07.9 - Chest pain, unspecified SNOMED: 98795554 (2) Parkinsons disease ICD Codes: G20 - Parkinson's disease SNOMED: 47623106 (3) ACS (acute coronary syndrome) ICD Codes: I24.9 - Acute ischemic heart disease, unspecified SNOMED: 880390387 (4) parkinson disease with drug induced dyskinesia, advanced Status: stable, progressing, tolerating diet Assessment/Plan ot pt diet, cbc bmp am Subjective Constitutional: Reports: weakness Allergies: Coded Allergies: No Known Allergies (Unverified , 12/22/16) All Systems: reviewed and negative except above Subjective calm in bed Objective Last 24 Hour Vital Signs Date Time Temp Pulse Resp B/P Pulse Ox O2 Delivery O2 Flow Rate FiO2 12/27/16 04:00 97.5 97 19 115/60 98 Room Air 12/27/16 00:00 97.4 98 19 125/63 98 Room Air 12/26/16 19:35 97.5 85 17 96 Room Air 12/26/16 16:00 97.5 97 20 121/75 98 Room Air 12/26/16 12:00 97.3 93 20 144/85 98 Room Air 12/26/16 09:00 113/71 12/26/16 09:00 72 113/71 Intake and Output 12/26/16 12/27/16 19:00 07:00 Intake Total 536 ml 60 ml Balance 536 ml 60 ml Intake Oral 536 ml 60 ml # Voids 8 2 Laboratory Tests 12/27/16 05:10: White Blood Count 6.4, Red Blood Count 4.86, Hemoglobin 16.6, Hematocrit 46.8, Mean Corpuscular Volume 96, Mean Corpuscular Hemoglobin 34.2H, Mean Corpuscular Hemoglobin Concent 35.5, Red Cell Distribution Width 10.7L, Platelet Count 174, Mean Platelet Volume 7.1, Neutrophils (%) (Auto) 61.6, Lymphocytes (%) (Auto) 24.3, Monocytes (%) (Auto) 9.7, Eosinophils (%) (Auto) 3.1H, Basophils (%) (Auto ) 1.3, Sodium Level 137, Potassium Level 3.5, Chloride Level 96L, Carbon Dioxide Level 25, Anion Gap 16H, Blood Urea Nitrogen 25H, Creatinine 1.0, Estimat Glomerular Filtration Rate , Glucose Level 100, Calcium Level 9.4 Height (Feet): 5 Height (Inches): 6.00 Weight (Pounds): 140 General Appearance: lethargic EENT: normal ENT inspection Neck: normal alignment Cardiovascular: normal peripheral pulses, normal rate, regular rhythm Respiratory/Chest: chest wall non-tender, lungs clear, normal breath sounds Abdomen: normal bowel sounds, non tender, soft Extremities: normal inspection Edema: no edema noted Arm (L), no edema noted Arm (R), no edema noted Leg (L), no edema noted Leg (R), no edema noted Pedal (L), no edema noted Pedal (R), no edema noted Generalized Neurologic: motor weakness Skin: normal pigmentation, warm/dry ELLY RICE Dec 27, 2016 08:26
[2016-12-27] MEDS: Aspirin EC 81mg tab ORAL SCH (08:53)
[2016-12-27] MEDS: BuPROPion SR 100mg tab ORAL SCH (08:53)
[2016-12-27] MEDS: Docusate 100mg cap ORAL SCH (08:53)
[2016-12-27] MEDS: metFORMIN 500mg tab ORAL SCH ×2 (08:53→17:15)
[2016-12-27] MEDS: Imdur 30mg tab ORAL SCH (08:53)
[2016-12-27] MEDS: Entacapone 200mg tab ORAL SCH ×4 (08:53→20:38)
[2016-12-27 12:12] VITALS: BP 100/71
[2016-12-27 16:07] VITALS: BP 115/65
[2016-12-27 20:00] VITALS: BP 124/74
[2016-12-27] MEDS: LORazepam 1mg tab ORAL PRN (20:38)
--- NOTE | 2016-12-27 22:40 | Cardiology Progress Note ---
Assessment/Plan Assessment/Plan 1. Atypical chest pain, non-ischemic stress test per nuclear stress test. 2. Accelerated HTN, continue propranolol, DC furosemide. Subjective Subjective Denies chest pain or SOB. Not on telemetry bed Objective Last 24 Hour Vital Signs Date Time Temp Pulse Resp B/P Pulse Ox O2 Delivery O2 Flow Rate FiO2 12/27/16 20:00 98.1 79 20 124/74 97 Room Air 12/27/16 16:07 97.4 95 18 115/65 96 Room Air 12/27/16 12:12 97.7 96 17 100/71 98 Room Air 12/27/16 08:53 124/86 12/27/16 08:53 98 124/86 12/27/16 08:00 98.4 98 17 124/86 98 Room Air 12/27/16 04:00 97.5 97 19 115/60 98 Room Air 12/27/16 00:00 97.4 98 19 125/63 98 Room Air Intake and Output 12/26/16 12/27/16 19:00 07:00 Intake Total 536 ml 60 ml Balance 536 ml 60 ml Intake Oral 536 ml 60 ml # Voids 8 2 Laboratory Tests Test 12/27/16 05:10 White Blood Count 6.4 K/UL (4.8-10.8) Red Blood Count 4.86 M/UL (4.70-6.10) Hemoglobin 16.6 G/DL (14.2-18.0) Hematocrit 46.8 % (42.0-52.0) Mean Corpuscular Volume 96 FL (80-99) Mean Corpuscular Hemoglobin 34.2 PG (27.0-31.0) H Mean Corpuscular Hemoglobin Concent 35.5 G/DL (32.0-36.0) Red Cell Distribution Width 10.7 % (11.6-14.8) L Platelet Count 174 K/UL (150-450) Mean Platelet Volume 7.1 FL (6.5-10.1) Neutrophils (%) (Auto) 61.6 % (45.0-75.0) Lymphocytes (%) (Auto) 24.3 % (20.0-45.0) Monocytes (%) (Auto) 9.7 % (1.0-10.0) Eosinophils (%) (Auto) 3.1 % (0.0-3.0) H Basophils (%) (Auto) 1.3 % (0.0-2.0) Sodium Level 137 mEQ/L (135-145) Potassium Level 3.5 mEQ/L (3.4-4.9) Chloride Level 96 mEQ/L (98-107) L Carbon Dioxide Level 25 mEQ/L (20-30) Anion Gap 16 (5-15) H Blood Urea Nitrogen 25 mg/dL (7-23) H Creatinine 1.0 mg/dL (0.7-1.2) Estimat Glomerular Filtration Rate mL/min (>60) Glucose Level 100 mg/dL (74-106) Calcium Level 9.4 mg/dL (8.6-10.2) Objective HEENT: normocephalic, bilateral eye PERRL, EOMI Neck: negative JVD, no carotid bruit with normal upstroke Respiratory: lungs clear Cardiovascular: regular rate, rhythm, normal S1S2, no murmurs, gallops or rubs Gastrointestinal: normal bowel sounds, non tender, no mass, non-distended Musculoskeletal: No edema, clubbing or cyanosis AICHA CONTEH Dec 27, 2016 22:40
[2016-12-27] MEDS: Propranolol 10mg tab ORAL SCH (22:45)
[2016-12-28] VITALS: BP 120/79
[2016-12-28 04:00] VITALS: BP 122/77
[2016-12-28] MEDS: Propranolol 10mg tab ORAL SCH ×2 (05:48→14:19)
[2016-12-28 06:21] LABS: BASOPHILS % (AUTO) 1.1 % (0.0-2.0); EOSINOPHILS % (AUTO) 4.2 % (0.0-3.0); LYMPHOCYTES % (AUTO) 24.4 % (20.0-45.0); MEAN CORPUSCULAR HEMOGLOBIN 33.8 PG (27.0-31.0); MEAN CORPUSCULAR VOLUME 97 FL (80-99); MEAN PLATELET VOLUME 7.3 FL (6.5-10.1); MONOCYTES % (AUTO) 9.5 % (1.0-10.0); NEUTROPHILS % (AUTO) 60.8 % (45.0-75.0); PLATELET COUNT 172 K/UL (150-450); RED BLOOD COUNT 4.41 M/UL (4.70-6.10); RED CELL DISTRIBUTION WIDTH 10.7 % (11.6-14.8)
[2016-12-28 06:45] LABS: ANION GAP 13 (5-15); CALCIUM 9.2 mg/dL (8.6-10.2); CARBON DIOXIDE 27 mEQ/L (20-30); CHLORIDE 99 mEQ/L (98-107); HEMOLYSIS 4; POTASSIUM 3.1 mEQ/L (3.4-4.9); SODIUM 139 mEQ/L (135-145)
[2016-12-28 08:00] VITALS: BP 102/61
[2016-12-28] MEDS: Imdur 30mg tab ORAL SCH (08:44)
[2016-12-28] MEDS: Aspirin EC 81mg tab ORAL SCH (08:54)
[2016-12-28] MEDS: Docusate 100mg cap ORAL SCH (08:54)
[2016-12-28] MEDS: BuPROPion SR 100mg tab ORAL SCH (08:54)
[2016-12-28] MEDS: metFORMIN 500mg tab ORAL SCH ×2 (08:54→17:28)
[2016-12-28] MEDS: Entacapone 200mg tab ORAL SCH ×3 (08:55→17:29)
--- NOTE | 2016-12-28 11:36 | General Progress Note ---
Assessment/Plan Problem List: (1) Parkinsons disease ICD Codes: G20 - Parkinson's disease SNOMED: 02196216 (2) Chest pain ICD Codes: R07.9 - Chest pain, unspecified SNOMED: 08203976 (3) ACS (acute coronary syndrome) ICD Codes: I24.9 - Acute ischemic heart disease, unspecified SNOMED: 306756456 Status: progressing Assessment/Plan no chest pain looking for snf confused reviwed chart and labs Subjective ROS Limited/Unobtainable: Yes Constitutional: Reports: no symptoms Allergies: Coded Allergies: No Known Allergies (Unverified , 12/22/16) Objective Last 24 Hour Vital Signs Date Time Temp Pulse Resp B/P Pulse Ox O2 Delivery O2 Flow Rate FiO2 12/28/16 08:45 69 102/61 12/28/16 08:44 102/61 12/28/16 08:00 97.7 16 102/61 98 Room Air 12/28/16 05:48 69 112/74 12/28/16 04:00 98.1 67 20 122/77 96 Room Air 12/28/16 00:00 98.1 69 20 120/79 96 Room Air 12/27/16 22:45 81 99/72 12/27/16 20:00 98.1 79 20 124/74 97 Room Air 12/27/16 16:07 97.4 95 18 115/65 96 Room Air 12/27/16 12:12 97.7 96 17 100/71 98 Room Air Intake and Output 12/27/16 12/28/16 19:00 07:00 Intake Total 1320 ml Balance 1320 ml Intake Oral 1320 ml # Voids 7 3 # Bowel Movements 3 1 Laboratory Tests 12/28/16 04:40: White Blood Count 5.0, Red Blood Count 4.41L, Hemoglobin 14.9, Hematocrit 42.6, Mean Corpuscular Volume 97, Mean Corpuscular Hemoglobin 33.8H, Mean Corpuscular Hemoglobin Concent 35.0, Red Cell Distribution Width 10.7L, Platelet Count 172, Mean Platelet Volume 7.3, Neutrophils (%) (Auto) 60.8, Lymphocytes (%) (Auto) 24.4, Monocytes (%) (Auto) 9.5, Eosinophils (%) (Auto) 4.2H, Basophils (%) (Auto ) 1.1, Sodium Level 139, Potassium Level 3.1L, Chloride Level 99, Carbon Dioxide Level 27, Anion Gap 13, Blood Urea Nitrogen 30H, Creatinine 1.0, Estimat Glomerular Filtration Rate , Glucose Level 100, Calcium Level 9.2 Height (Feet): 5 Height (Inches): 6.00 Weight (Pounds): 140 Cardiovascular: normal rate Respiratory/Chest: lungs clear Abdomen: soft Shireen Das MD Dec 28, 2016 11:36
--- NOTE | 2016-12-28 11:45 | Consultation ---
Consult Note Consult Note Heme Tara RFC: 12/28/2016 RFC: Eosinophilia tara CRAWFORD MD: Pippa HISTORY OF PRESENT ILLNESS: 81 y male admitted for chest pain and rule out acute coronary syndrome. The patient's chest pain started a couple of hours ago. Aspirin was given as well as three doses of nitroglycerin. The patient denies nausea, vomiting, or diarrhea. Denies palpitations. Denies shortness of breath. Denies cough. Denies loss of consciousness. has been evaluated with cards who ascribe pain to atypical cp and heme requested given new eosinophilia. PAST MEDICAL HISTORY: 1. Parkinson's. 2. GERD. PAST SURGICAL HISTORY: None. MEDICATIONS: None. ALLERGIES: None. FAMILY HISTORY: Noncontributory. No history of heart disease. SOCIAL HISTORY: Denies history of smoking, alcohol, or illicit drugs. REVIEW OF SYSTEMS: HEENT: Denies headaches. Respiratory: Denies shortness of breath. Denies cough. Cardiovascular: Reports chest pain for a couple of hours on admission. Now better. Denies orthopnea. Gastrointestinal: Denies nausea, vomiting, or diarrhea. Denies heartburn. Extremities: Denies pain. Central Nervous System: No change in vision or speech pattern. PHYSICAL EXAMINATION: VITAL SIGNS: stable and have been reviewed HEENT: PERRLA. NECK: Supple. No lymphadenopathy. CHEST: Clear to auscultation. GASTROINTESTINAL: Soft, nontender, and nondistended. No organomegaly. EXTREMITIES: No edema. Reflexes are equal on both sides. Moves all four extremities. Laboratory Tests Test 12/28/16 04:40 White Blood Count 5.0 K/UL (4.8-10.8) Red Blood Count 4.41 M/UL (4.70-6.10) L Hemoglobin 14.9 G/DL (14.2-18.0) Hematocrit 42.6 % (42.0-52.0) Mean Corpuscular Volume 97 FL (80-99) Mean Corpuscular Hemoglobin 33.8 PG (27.0-31.0) H Mean Corpuscular Hemoglobin Concent 35.0 G/DL (32.0-36.0) Red Cell Distribution Width 10.7 % (11.6-14.8) L Platelet Count 172 K/UL (150-450) Mean Platelet Volume 7.3 FL (6.5-10.1) Neutrophils (%) (Auto) 60.8 % (45.0-75.0) Lymphocytes (%) (Auto) 24.4 % (20.0-45.0) Monocytes (%) (Auto) 9.5 % (1.0-10.0) Eosinophils (%) (Auto) 4.2 % (0.0-3.0) H Basophils (%) (Auto) 1.1 % (0.0-2.0) Sodium Level 139 mEQ/L (135-145) Potassium Level 3.1 mEQ/L (3.4-4.9) L Chloride Level 99 mEQ/L (98-107) Carbon Dioxide Level 27 mEQ/L (20-30) Anion Gap 13 (5-15) Blood Urea Nitrogen 30 mg/dL (7-23) H Creatinine 1.0 mg/dL (0.7-1.2) Estimat Glomerular Filtration Rate mL/min (>60) Glucose Level 100 mg/dL (74-106) Calcium Level 9.2 mg/dL (8.6-10.2) Current Medications Medications (Trade) Dose Ordered Sig/Sara Route PRN Reason Start Time Stop Time Status Last Admin Dose Admin Acetaminophen (Tylenol) 650 mg Q6H PRN ORAL Mild Pain/Temp > 100.5 12/25/16 00:15 01/24/17 00:14 Amlodipine Besylate (Norvasc) 10 mg DAILY ORAL 12/25/16 09:00 01/24/17 08:59 12/27/16 08:53 Aspirin (Ecotrin) 81 mg DAILY ORAL 12/25/16 09:00 01/24/17 08:59 12/28/16 08:54 Bupropion HCl (Wellbutrin SR) 200 mg DAILY ORAL 12/25/16 09:00 01/24/17 08:59 12/28/16 08:54 Carbidopa/Levodopa (Sinemet 25/250) 1 ea BEFORE MEALS AND HS ORAL 12/25/16 06:30 01/24/17 06:29 12/28/16 06:13 Docusate Sodium (Colace) 100 mg DAILY ORAL 12/25/16 09:00 01/24/17 08:59 12/28/16 08:54 Entacapone (Comtan) 200 mg FOUR TIMES A DAY ORAL 12/25/16 09:00 01/24/17 08:59 12/28/16 08:55 Gabapentin (Neurontin) 100 mg THREE TIMES A DAY ORAL 12/25/16 09:00 01/24/17 08:59 12/28/16 08:54 Isosorbide Mononitrate (Imdur) 30 mg DAILY ORAL 12/25/16 09:00 01/24/17 08:59 12/27/16 08:53 Lorazepam (Ativan) 1 mg BEDTIME PRN ORAL Insomnia 12/25/16 21:00 01/01/17 20:59 12/27/16 20:38 Metformin HCl (Glucophage) 500 mg TWICE A DAY ORAL 12/25/16 09:00 01/24/17 08:59 12/28/16 08:54 Propranolol HCl (Inderal) 10 mg Q8HR ORAL 12/27/16 22:45 01/26/17 22:44 Quetiapine Fumarate (SEROquel) 12.5 mg Q12HR PRN ORAL Agitation 12/25/16 09:00 01/24/17 08:59 12/27/16 22:09 ASSESSMENT AND PLAN: # Eosinophilia - current percentage approx 4%, has had no recent weight loss, less likely malignancy, no associated rash, no wheezing, cough, congestion, no GI issues, no lymphadeopathy or hepatomegaly, no major cardiac issues. No recent travel. Could be medications effect, but total wbc is within normal limits and therefore for now would continue medications as is. ---> order peripheral smear, LFT, stool o&P, UA, and monitor Cbc at least every few days # Atypical chest pain # HTN - poorly controlled # Parkinson's disease # Weakness Musa Adam Dec 28, 2016 11:45
[2016-12-28 12:00] VITALS: BP 131/87
[2016-12-28 12:23] LABS: BILIRUBIN,DIRECT 0.1 mg/dL (0.1-0.3); TOTAL PROTEIN 6.4 g/dL (6.6-8.7)
[2016-12-28 13:25] LABS: BAND NEUTROPHILS % (MANUAL) 0 % (0-8); BASOPHILS % (MANUAL) 0 % (0-2); EOSINOPHILS % (MANUAL) 4 % (0-3); LYMPHOCYTES % (MANUAL) 27 % (20-45); NEUTROPHILS % (MANUAL) 60 % (45-75); PLATELET ESTIMATE ADEQUATE; PLATELET MORPHOLOGY NORMAL; TOTAL CELLS COUNTED 100
[2016-12-28 13:29] LABS: PATH BLOOD SMEAR/OMC SENT TO PATHOLOGIST
--- NOTE | 2016-12-28 15:48 | Diagnostic Imaging Report ---
Indication: Dysphasia Procedure and findings: Real-time fluoroscopic imaging performed in a lateral projection in conjunction with the speech pathologist evaluation. Variable consistencies of barium given per mouth. Findings: Significant abnormalities of both oral and pharyngeal phases of swallowing are demonstrated. Total fluoroscopic time 104 seconds. Trace laryngeal penetration noted. No aspiration visualized. Abnormal video swallow. Please refer to speech pathology evaluation for more information.
[2016-12-28 16:00] VITALS: BP 133/83
[2016-12-28] MEDS ORDERED: DOBUTamine 250mg/250ml Premix IV ONE (18:14)
--- NOTE | 2016-12-30 09:45 | Discharge Summary ---
Discharge Summary Hospital Course Date of Admission December 22, 2016 at 08:49 Date of Discharge Dec 28, 2016 at 18:15 Admitting Diagnosis CHEST PAIN R/O ACS HPI Arnaud Ko is a 81 year old male who was admitted on December 22, 2016 at 08:49 for Chest Pain,R/O Acute Coronary Syndrome Hospital Course dc summary #[id number] Discharge Medications Continued Medications: Amlodipine Besylate* (Amlodipine Besylate*) 10 Mg Tablet 10 MG ORAL DAILY, TAB Bupropion Hcl (Bupropion Hcl Sr) 200 Mg Tablet.er 200 MG PO DAILY, TAB Carbidopa/Levodopa (Carbidopa-Levo 25-250 Mg Odt) 1 Each Tab.rapdis 1 EACH PO FOUR TIMES A DAY, TAB Docusate Sodium* (Colace*) 100 Mg Capsule 100 MG ORAL DAILY, CAP Entacapone (Comtan) 200 Mg Tablet 200 MG ORAL FOUR TIMES A DAY, TAB Furosemide* (Lasix*) 20 Mg Tablet 20 MG ORAL DAILY, TAB Gabapentin* (Gabapentin*) 100 Mg Capsule 100 MG ORAL THREE TIMES A DAY, CAP Isosorbide Mononitrate (Isosorbide Mononitrate Er) 30 Mg Tab.er.24h 30 MG PO DAILY, TAB Lipase/Protease/Amylase (Creon Dr 24,000 Units Capsule) 1 Each Capsule.dr 1 EACH PO THREE TIMES A DAY, CAP Metformin Hcl* (Metformin Hcl*) 500 Mg Tablet 500 MG ORAL TWICE A DAY, TAB Discharge Condition Upon Discharge: stable Discharge Disposition Patient was discharged to SNF/Subacute Facility(03) Discharge Diagnoses: Discharge Instructions Discharge Instructions Special Instructions I have been assigned to complete a D/C Summary on this account. I was not involved in the patient management Mesha Fry NP ([place]) Dec 30, 2016 09:45
--- NOTE | 2016-12-31 02:16 | Discharge Summary 2 SIG ---
DATE OF ADMISSION: 12/22/2016 DATE OF DISCHARGE: 12/28/2016 REASON FOR ADMISSION: A 81-year-old with a history of Parkinson, dementia, hypertension, and diabetes presented to emergency room with substernal chest pain started 2 hours ago. Paramedics given patient aspirin and 3 sprays of nitroglycerin in route. Initially pain was 10/10 on a scale 1 to 10. He felt better after treatment. According to the daughter, the patient had several days of dyspnea and intermittent orthopnea. No fevers, no nausea, no vomiting, no diarrhea, no headache, no dysuria, and no rashes. The patient is being treated for Parkinson. Workup in the emergency room revealed negative troponin. EKG revealed sinus rhythm with first-degree IV block and lateral infarct, age undetermined. Pulse oximetry was stable on room air. Vital signs were stable. Chest x-ray revealed chronic changes. No acute cardiopulmonary issues. Troponin negative. The patient admitted to telemetry floor. ADMITTING DIAGNOSES: 1. Chest pain, rule out acute coronary syndrome. 2. Parkinson disease. 3. Hypertension. 4. Dementia. 5. Diabetes. HOSPITAL COURSE: The patient was on telemetry floor. Cardiology consult was requested. Blood pressure was managed with calcium channel nadia. The patient started on aspirin. Blood sugar was managed with sliding scale insulin and metformin. Neurology consult was requested regarding the Parkinson disease. According to neurologist, the patient had a Parkinson disease with drug induced dyskinesia, advanced. Neurologist recommended to give the Sinemet half hour before meals with Comtan, and recommended [facility] as outpatient as well as psychiatric evaluation. Psychiatric evaluation was done. The patient was diagnosed with anxiety disorder, dementia, anxiolytic p.r.n. and psychiatrist closely followed. The patient also undergone video swallow evaluation, which was abnormal and revealed moderate dysphagia. Family was instructed on strict aspiration precaution and reflux precaution. Diet started as per speech therapy recommendation. Mechanical soft chopped with nectar thick liquids, family educated. Venous duplex bilateral lower extremity was negative. Lipid panel was stable. Blood pressure controlled with the current medication. According to sales representative cash registers, the patient had non-ischemic stress test per nuclear stress test and the patient was on beta-nadia and calcium channel nadia. Blood pressure, which was stable to be continued. The patient was stable for discharge on aspirin. DISCHARGE DIAGNOSES: Include, 1. Atypical chest pain. Per sales representative cash registers, chest pain is atypical since the stress test is negative. 2. Hypertension. 3. Parkinson disease with drug-induced dyskinesia, advanced. 4. Dementia. 5. Anxiety disorder. 6. Diabetes mellitus type 2. 7. Moderate dysphagia. DISCHARGE MEDICATIONS: See medication reconciliation list. DISCHARGE INSTRUCTIONS: The patient transferred to long term facility. Follow up with medical doctor at the facility. Recommended outpatient follow up with the [facility]. Shireen Das MD I have been assigned to dictate discharge summary on this account and I was not involved in the patient's management. Mesha Cohenmon[facility]fiore nyack hospitalSherrie, N.P. DR: JOSE D JOB#: [id number] CC:
== END 2016-12-28 18:15 | DRG 203 ==
LOC: EDBD 07:33 → EMR 08:07 → 2E 08:49 → EDBEDREQ 09:16 → 2E 21:07 → 4E 12-24 22:33
DX: R07.89 Other chest pain (principal); E11.8 Type 2 diabetes mellitus with unspecified complications; G20 Parkinson's disease; F02.80 Dementia in other diseases classified elsewhere, unspecified severity, without behavioral disturbance, psychotic disturbance, mood disturbance, and anxiety; I10 Essential (primary) hypertension; K21.9 Gastro-esophageal reflux disease without esophagitis; F41.9 Anxiety disorder, unspecified; F32.9 Major depressive disorder, single episode, unspecified; G24.01 Drug induced subacute dyskinesia; T42.8X5A Adverse effect of antiparkinsonism drugs and other central muscle-tone depressants, initial encounter; R41.0 Disorientation, unspecified
CPT/HCPCS: 36415; 71010; 74230; 78452; 80048; 80053; 80061; 80076; 81003; 82550; 82607; 83880; 84484; 85007; 85025; 85044; 85060; 85610; 85730; 93005; 93017; 93970; J2405